=== PATIENT | male | born 2000 | race Two or more races ===

== ENCOUNTER 2022-07-09 14:51 | Emergency (ER) | payer MEDICAID, OTHER ==
[~2022-07-09] VITALS: Ht 172.7 cm; Wt 83.9 kg
--- NOTE | 2022-07-09 15:00 | NUR ---
BIB FRIEND WITH LEFT FOREARM LACERATION FROM A SKILLSAW. TDAP NOT UP TO DATE. PRESSURE APPLIED. PT AWAITING MD LIPSCOMB.
[2022-07-09] MEDS ORDERED: TDAP [DIPH/PERTUSSIS/TET] 0.5 ML VIAL IM ONE ×2 (16:30→17:34)
[2022-07-09] MEDS ORDERED: SULF1TAB48 PO (16:57)
[2022-07-09] MEDS ORDERED: BACI30OI9 TP (16:57)
[2022-07-09 17:46] VITALS: BP 134/68
--- NOTE | 2022-07-09 17:46 | NUR ---
Patient discharged to home in stable condition. Written and verbal after care instructions given. Patient verbalizes understanding of instruction.
== END 2022-07-09 17:46 | disposition home or self-care (01) ==
LOC: ER 14:55
DX: S51.812A Laceration without foreign body of left forearm, initial encounter (principal); Z79.899 Other long term (current) drug therapy; Z60.2 Problems related to living alone; Z88.0 Allergy status to penicillin; W01.0XXA Fall on same level from slipping, tripping and stumbling without subsequent striking against object, initial encounter; Y93.89 Activity, other specified; Y92.89 Other specified places as the place of occurrence of the external cause; Y99.8 Other external cause status
CPT/HCPCS: 99284; 12032; 90471; 90715; 73090; A6403